=== PATIENT | male | born 1955 | race Caucasian/White ===

== ENCOUNTER → 2021-02-09 11:32 | Outpatient (CLI) | payer MEDICARE | END | disposition home or self-care (01) | LOC: D.MRI 11:00 | PROVIDERS: ATTEND Nurse Practitioner Family | DX: S76.312A Strain of muscle, fascia and tendon of the posterior muscle group at thigh level, left thigh, initial encounter (principal) ==

== ENCOUNTER 2021-04-23 05:05 | Day surgery (SDC) | payer MEDICARE ==
[2021-04-22 09:39] LABS: BASOPHILS 0.7 % (0-2); EOSINOPHILS 2.1 % (0-7); HEMATOCRIT 42.8 % (42.0-54.0); LYMPHOCYTES 24.4 % (15-50); MCH 27.6 pg (26.0-34.0); MCHC 32.7 g/dL (31.0-37.0); MCV 84.5 fL (80.0-100.0); MEAN PLATELET VOLUME 7.3 fL (7.4-10.4); MONOCYTES 7.3 % (2-11); NEUTROPHILS 65.5 % (40-80); PLATELET COUNT 308 10x3/uL (130-400); RBC 5.07 10x6/uL (4.20-6.10); RDW 15.1 % (11.5-14.5); WBC 9.7 10x3/uL (4.8-10.8)
[2021-04-22 09:52] LABS: CALC OSMOLALITY 279 mosm/kg (275-300); CALCIUM 8.7 mg/dL (8.5-10.1); CARBON DIOXIDE 34.4 mmol/L (21.0-32.0); CHLORIDE - SERUM 101 mmol/L (98-107); GLUCOSE 106 mg/dL (74-106); POTASSIUM - SERUM 3.5 mmol/L (3.5-5.1); SODIUM 140 mmol/L (136-145); UREA NITROGEN 16 mg/dL (7-18); eGFR NON AFRICAN AMERICAN 80 mL/min (90-120)
[2021-04-22 10:04] LABS: SARS-CoV-2 ANTIGEN NEGATIVE- SARS-COV-2 (NEGATIVE)
[~2021-04-23] VITALS: Ht 170.2 cm; Wt 154.2 kg
[~2021-04-23 05:05] MED LIST: CELEXA40 MG PO; GABAPENTIN300 MG PO; HYDROCODONE-AC1 EAC2 PO; LISINOPRIL30 MG PO; MOBIC7.5 MG PO; NORVASC10 MG PO; TRAZODONE HCL50 MG PO; ZANAFLEX4 MG PO
[2021-04-23] MEDS ORDERED: HCTZ25 MG PO (06:13)
[2021-04-23 06:16] VITALS: BP 140/98; Ht 170.2 cm; Wt 154.2 kg
[2021-04-23] MEDS ORDERED: HYDROCODON-ACE1 EA10 PO (09:03)
[2021-04-23] MEDS ORDERED: MEDROL DOSE PACK4 MG PO (09:03)
--- NOTE | 2021-04-23 10:31 | NUR ---
1030 INSTRUCTIONS GIVEN TO FAMILY AND PT ON RA
--- NOTE | 2021-04-23 11:25 | NUR ---
1050 IV REMOVED AND PRESSURE HELD. INSTRUCTIONS GIVEN. 1055 VOIDED IN BATHROOM
--- NOTE | 2021-04-27 09:06 | OP ---
PATIENT NAME: ADRIANNE FLEMING MEDICAL RECORD: [id number] LOCATION:[facility] ADMISSION DATE: SURGEON: KIAN QUINTEROS MD DATE OF OPERATION: 04/23/2021 PREOPERATIVE DIAGNOSES: Lumbar spinal stenosis and left L5 radiculopathy secondary to synovial cyst at L4-L5, left. POSTOPERATIVE DIAGNOSES: Lumbar spinal stenosis and left L5 radiculopathy secondary to synovial cyst at L4-L5, left. PROCEDURE PERFORMED: Lumbar laminectomy, medial facetectomy, and foraminotomy with microdissection of synovial cyst on the left at L4-L5. SURGEON: Kian Quinteros MD DESCRIPTION OF PROCEDURE: After induction of general endotracheal anesthesia, the patient was rolled prone on a Damir frame. Lumbar spine was prepped and draped in the usual sterile fashion. Fluoroscopic x-ray and spinal needle localized the L4-L5 interspace on the left side. After infiltration of 1:100,000 epinephrine with 1% lidocaine, I created a stab incision at L4-L5 on the left. A series of dilators were used to advance the METRx retractor to the L4-L5 interspace on the left side. The level was confirmed with fluoroscopic x-ray. A microscope and Midas Efrem drill were used to perform a laminectomy, medial facetectomy, and foraminotomy at L4-L5 on the left. Hypertrophied ligamentum flavum was removed with cautery to ensure is in the process of removing ligamentum flavum. There is a large synovial cyst encroaching on the central as well as the canal as well as the lateral recess at L4-L5 on the left. This is removed from the dura with careful microdissection. Following this, the dura was decompressed as well. Meticulous hemostasis was maintained throughout the wound. Wound was irrigated with copious amounts of Ancef irrigant solution. The retractor was removed. The fascia was closed with 2-0 Vicryl suture. The subdermal layers closed with 3-0 Vicryl suture. Skin was closed with minoo. A sterile dressing was applied to the wound. The patient was awakened in good condition and taken to recovery. All counts were reported as correct. Estimated blood loss was minimal. TRANSINT:[id number] Voice Confirmation ID: [id number] DOCUMENT ID: [id number] KIAN QUINTEROS MD at 0906 CC: [id number] DICTATION DATE: 04/23/212215 LUMP ROLLER: 04/23/215 [facility] 04/23/21 [id number] [place] [address]
== END 2021-04-23 11:00 | disposition home or self-care (01) ==
LOC: D.OPS 05:05
PROVIDERS: Anesthesiology; ATTEND Neurological Surgery
DX: M48.061 Spinal stenosis, lumbar region without neurogenic claudication (principal); M54.16 Radiculopathy, lumbar region; M71.38 Other bursal cyst, other site; I10 Essential (primary) hypertension; M54.5 Low back pain